=== PATIENT | male | born 1955 | race Caucasian/White ===

== ENCOUNTER → 2023-12-16 11:08 | Outpatient (REF) | payer MEDICARE, OTHER, SELFPAY | LOC: HWRAD 11:08 | PROVIDERS: ATTENDING PHYSICIAN Physician Assistant Medical; FAMILY PHYSICIAN Physician Assistant | DX: R05.9 Cough, unspecified (principal) | CPT/HCPCS: 71046 ==

== ENCOUNTER → 2024-02-14 15:16 | Outpatient (REF) | payer MEDICARE, OTHER, SELFPAY | LOC: CLAB 15:16 | PROVIDERS: ATTENDING PHYSICIAN Surgery | DX: K64.4 Residual hemorrhoidal skin tags (principal) | CPT/HCPCS: 88304 ==

== ENCOUNTER 2024-06-20 06:24 | Day surgery (SDC) | payer MEDICARE, OTHER, SELFPAY | END 2024-06-20 12:49 | disposition home or self-care (01) | LOC: GI 06:24 | PROVIDERS: ATTENDING PHYSICIAN Internal Medicine | DX: Z12.11 Encounter for screening for malignant neoplasm of colon (principal); K50.00 Crohn's disease of small intestine without complications; K63.89 Other specified diseases of intestine; K64.8 Other hemorrhoids | CPT/HCPCS: 45380; 88305 ==

== ENCOUNTER 2024-09-24 06:10 | Day surgery (SDC) | payer MEDICARE, OTHER, SELFPAY ==
[2024-09-24] VITALS (11 sets, daily range): BP systolic 105–133; BP diastolic 69–93; BMI 29.9
[2024-09-24] MEDS: TYLENOL 1000 MG PO (07:51)
[2024-09-24] MEDS: NORMOSOL-R/PLASMALYTE-A 1000 IV (07:53)
--- NOTE | 2024-09-24 09:47 | W.IMMPOSTOP ---
Surgical Immed Post Op Note
-
Primary Surgeon: Peggy
Assisting: Vandana CLAUDIO
Pre-op Diagnosis: Right inguinal hernia
Post-op Diagnosis: Same
Procedure Performed: Robot assisted laparoscopic repair of right inguinal hernia
Anesthesia Type: GETA
Specimen / Cultures: None
Estimated Blood Loss: 4cc
Complications: Superficial csutery injury to serosa of cecum, oversewn with 2-0 vicryl lembert sutures.
Operative Findings: Extensive scarring to right lower quadrant likely from prior open appendectomy. Adhesions lysed with cold veda. During flap creation a small area of superficial cautery burn to cecal serosa was identified and oversewn as noted
above. Indirect defect, mildly fatty cord, no cord lipoma, XL MID 3D Max
--- NOTE | 2024-09-24 09:50 | OR.RPT ---
Operative Report
Operative Report
Primary Surgeon: Peggy
Assisting: Vandana CLAUDIO
Pre-op Diagnosis: Right inguinal hernia
Post-op Diagnosis: Same
Procedure Performed: Robot assisted laparoscopic repair of right inguinal hernia
Anesthesia Type: GETA
Specimen / Cultures: None
Estimated Blood Loss: 4cc
Complications: Superficial cautery injury to serosa of cecum, oversewn with 2-0 vicryl lembert sutures.
Operative Findings: Extensive scarring to right lower quadrant likely from prior open appendectomy. Adhesions lysed with cold veda. During flap creation a small area of superficial cautery burn to cecal serosa was identified and oversewn as noted
above. Indirect defect, mildly fatty cord, no cord lipoma, XL MID 3D Max
Date of surgery: 09/24/24
Indications:� This 68M developed a symptomatic right inguinal hernia. Robot assisted laparoscopic repair was planned.
Description of procedure:� The patient was taken to the operating room and positioned into supine position. The patient�s abdomen was prepped and draped in standard sterile fashion. A time-out was completed verifying correct patient, procedure,
site, positioning, and implants and special equipment prior to beginning this procedure.
The right groin hernia was manually reduced. A stab incision was made in the left upper quadrant, a Veress needle was inserted and proper position was confirmed by aspiration and saline drop test. Following this, pneumoperitoneum was created with
insufflation of carbon dioxide to 12 mmHg. Then a 8mm robotic trocar was inserted above and to the left of the umbilicus. A laparoscope was inserted and the area of initial trocar entry and Veress needle placement were both inspected and no injuries
were found. Two 8mm trocars were then placed lateral to the rectus sheath under direct visualization.
Both inguinal regions were inspected and the median umbilical ligament, medial umbilical ligament, and lateral umbilical fold were identified. Attention was turned to the right groin. The peritoneum was incised transversely above the defect and a
flap was developed in the caudad direction. Uriah�s ligament was identified ultimately dissected to its junction with the iliac vein and the space of Retzius was developed bluntly.�The dissection was continued inferiorly to the iliopubic tract,
with care taken to avoid injury to the femoral branch of the genitofemoral nerve and the lateral femoral cutaneous nerve. The cord structures were parietalized.
The direct space was inspected and no hernia defect was identified. The femoral space was inspected no defect was identified.� The indirect space was inspected and a hernia was identified and reduced by gentle traction. The canal was inspected and
no cord lipoma was identified though the cord was mildly fatty.
Extra large right MID 3D max mesh was passed through a trocar. The mesh was placed into the preperitoneal space and moved into position to lay flat and completely cover the direct, indirect, and femoral spaces with overlap beyond the midline. The
mesh was secured into place using 2-0 vicryl suture to Uriah�s ligament medially and laterally. Care was taken to avoid the inferolateral triangles containing the iliac vessels and genital nerves. The peritoneal flap was closed over the mesh and
secured with 2-0 monocryl stratafix suture in similar positions of safety. A 14g angiocath was used to decompress the preperitoneal space revealing good seal and all mesh in good position without folding or curling.
After ensuring adequate hemostasis, the trocars were removed and the pneumoperitoneum allowed to escape. The trocar incisions were closed at the skin level using 4-0 monocryl and topical skin adhesive. All counts were correct and the patient
tolerated the procedure well and was taken to the postanesthesia care unit in stable condition.
The assistance of Vandana CLAUDIO was required due to the complexity of the procedure. During the procedure she assisted with retraction, and closure of the wound.
[2024-09-24] MEDS: SUBLIMAZE 50 MCG IV (10:24)
[2024-09-24] MEDS: ROXICODONE 5 MG PO (11:31)
== END 2024-09-24 12:05 | disposition home or self-care (01) ==
LOC: SDS 06:10
PROVIDERS: ATTENDING PHYSICIAN Surgery
DX: K40.90 Unilateral inguinal hernia, without obstruction or gangrene, not specified as recurrent (principal); K66.0 Peritoneal adhesions (postprocedural) (postinfection)
CPT/HCPCS: 49650; C1781

== ENCOUNTER → 2024-10-24 10:12 | Outpatient (REF) | payer MEDICARE, OTHER, SELFPAY | LOC: HWRCS 10:12 | PROVIDERS: ATTENDING PHYSICIAN Internal Medicine Cardiovascular Disease; FAMILY PHYSICIAN Internal Medicine | DX: I25.810 Atherosclerosis of coronary artery bypass graft(s) without angina pectoris (principal); I25.5 Ischemic cardiomyopathy; I77.810 Thoracic aortic ectasia | CPT/HCPCS: 93306 ==